=== PATIENT | male | born 1980 | race Caucasian/White ===

== ENCOUNTER 2017-04-03 23:58 | Observation (INO) | payer OTHER ==
[~2017-04-03] VITALS: Ht 182.9 cm; Wt 117.9 kg
[2017-04-04] VITALS (11 sets, daily range): BP systolic 104–120; BP diastolic 62–81
[2017-04-04 00:13] LABS: BASOPHILS # (AUTO) 0.1 10^3/uL (0.0-0.1); BASOPHILS % (AUTO) 1 % (0-10); EOSINOPHILS # (AUTO) 0.4 10^3/uL (0.0-0.3); EOSINOPHILS % (AUTO) 2 % (0-10); LYMPHOCYTES % (AUTO) 34 % (12-44); MEAN CORPUSCULAR HEMOGLOBIN 31 PG (25-34); MEAN CORPUSCULAR HGB CONC 34 G/DL (32-36); MEAN CORPUSCULAR VOLUME 91 FL (80-99); MEAN PLATELET VOLUME 9.3 FL (7.4-10.4); MONOCYTES # (AUTO) 0.8 X 10^3 (0.0-1.0); MONOCYTES % (AUTO) 6 % (0-12); NEUTROPHILS # (AUTO) 8.5 X 10^3 (1.8-7.8); NEUTROPHILS % (AUTO) 58 % (42-75); PLATELET COUNT 350 10^3/uL (130-400); RED BLOOD COUNT 5.18 10^6/uL (4.35-5.85); RED CELL DISTRIBUTION WIDTH 13.9 % (10.0-14.5); WHITE BLOOD COUNT 14.8 10^3/uL (4.3-11.0)
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
[2017-04-04 00:19] LABS: PROTHROMBIN TIME PATIENT 13.3 SEC (12.2-14.7)
[2017-04-04 00:33] LABS: ALANINE AMINOTRANSFERASE 14 U/L (0-55); ALBUMIN 4.2 GM/DL (3.2-4.5); ALCOHOL < 10 MG/DL (<10); ANION GAP 13 MMOL/L (5-14); ASPARTATE AMINO TRANSFERASE 10 U/L (5-34); BAND NEUTROPHILS 2 %; BASOPHILS % (MANUAL) 0 %; BILIRUBIN,TOTAL 0.3 MG/DL (0.1-1.0); BLOOD UREA NITROGEN 9 MG/DL (7-18); BUN/CREATININE RATIO 8; CALCIUM 9.5 MG/DL (8.5-10.1); CARBON DIOXIDE 20 MMOL/L (21-32); CHLORIDE 106 MMOL/L (98-107); CREATINE KINASE 57 U/L (30-200); CREATININE SERUM 1.12 MG/DL (0.60-1.30); EOSINOPHILS % (MANUAL) 2 %; GFR ESTIMATED > 60; GLUCOSE 117 MG/DL (70-105); LYMPHOCYTES % (MANUAL) 30 %; MAGNESIUM 2.1 MG/DL (1.8-2.4); NEUTROPHILS % (MANUAL) 46 %; POTASSIUM 4.1 MMOL/L (3.6-5.0); REACTIVE LYMPHOCYTES 14 %; SODIUM 139 MMOL/L (135-145); TOTAL PROTEIN 7.5 GM/DL (6.4-8.2)
[2017-04-04 00:35] LABS: ACETAMINOPHEN < 10 UG/ML (10-30)
[2017-04-04 00:53] LABS: TROPONIN I < 0.30 NG/ML (<0.30)
[2017-04-04 01:48] LABS: BILIRUBIN,URINE NEGATIVE (NEGATIVE); KETONES,URINE 1+ (NEGATIVE); LEUKOCYTE ESTERASE ,URINE 1+ (NEGATIVE); NITRITE,URINE NEGATIVE (NEGATIVE); PH,URINE 6.5 (5-9); PROTEIN,URINE 2+ (NEGATIVE); UROBILINOGEN,URINE 1 MG/DL (NORMAL)
[2017-04-04 01:56] LABS: SQUAMOUS EPITHELIAL CELL,UR RARE /HPF; WBC,URINE RARE /HPF
[2017-04-04] MEDS ORDERED: LACTATED RINGERS 1,000 ML IV ONE (02:08)
[2017-04-04] MEDS ORDERED: D5 1/2 NS 1000 ML IV SOLUTION 1,000 ML IV ONE (04:31)
[2017-04-04] MEDS ORDERED: ACET325T38 PO (05:19)
[2017-04-04] MEDS ORDERED: METO50TA15 PO (05:21)
[2017-04-04] MEDS ORDERED: D5 1/2 NS 1000 ML IV SOLUTION 1,000 ML IV SCH (06:15)
--- NOTE | 2017-04-04 06:47 | Diagnostic Imaging Report ---
Exam: CT head without contrast. TECHNIQUE: Axial CT images of the head were obtained without the use of intravenous contrast. DATE: 04/04/2017. COMPARISON: None. INDICATION: 36-year-old male, memory loss. Evaluation for stroke. FINDINGS: The ventricles and cerebral spinal fluid spaces are of normal size and configuration for the patient's age. There is no mass effect or midline shift. There is no acute intracranial hemorrhage. There is no abnormal extra-axial fluid collection. There is a polypoid lesion in the left maxillary sinus likely relating to a mucous retention cyst. There is mucosal thickening of the right and left sphenoid sinuses. Additional visualized portions of the paranasal sinuses, mastoid air cells, and middle ears are well aerated. IMPRESSION: 1. No identified acute intracranial abnormality. Dictated by: Dictated on workstation # [id number]
--- NOTE | 2017-04-04 06:57 | Diagnostic Imaging Report ---
INDICATION: Memory loss. Altered mental status. FINDINGS: Portable chest shows the lungs to be clear. Heart is not enlarged. There is no pulmonary edema or hilar adenopathy. No pneumothorax or pleural effusions. IMPRESSION: Normal portable chest. Dictated by: Dictated on workstation # [id number]
[2017-04-04 07:29] LABS: BASOPHILS % (AUTO) 0 % (0-10); EOSINOPHILS # (AUTO) 0.2 10^3/uL (0.0-0.3); EOSINOPHILS % (AUTO) 1 % (0-10); LYMPHOCYTES # (AUTO) 2.5 X 10^3 (1.0-4.0); LYMPHOCYTES % (AUTO) 17 % (12-44); MEAN CORPUSCULAR HEMOGLOBIN 31 PG (25-34); MEAN CORPUSCULAR HGB CONC 34 G/DL (32-36); MEAN CORPUSCULAR VOLUME 91 FL (80-99); MEAN PLATELET VOLUME 9.4 FL (7.4-10.4); MONOCYTES # (AUTO) 0.7 X 10^3 (0.0-1.0); MONOCYTES % (AUTO) 5 % (0-12); NEUTROPHILS # (AUTO) 11.4 X 10^3 (1.8-7.8); NEUTROPHILS % (AUTO) 77 % (42-75); PLATELET COUNT 265 10^3/uL (130-400); RED BLOOD COUNT 4.98 10^6/uL (4.35-5.85); WHITE BLOOD COUNT 14.8 10^3/uL (4.3-11.0)
[2017-04-04 07:42] LABS: ALANINE AMINOTRANSFERASE 13 U/L (0-55); ALBUMIN 3.8 GM/DL (3.2-4.5); ANION GAP 10 MMOL/L (5-14); ASPARTATE AMINO TRANSFERASE 10 U/L (5-34); BILIRUBIN,TOTAL 0.4 MG/DL (0.1-1.0); BLOOD UREA NITROGEN 9 MG/DL (7-18); BUN/CREATININE RATIO 10; CALCIUM 8.9 MG/DL (8.5-10.1); CARBON DIOXIDE 22 MMOL/L (21-32); CHLORIDE 108 MMOL/L (98-107); CREATININE SERUM 0.86 MG/DL (0.60-1.30); GFR ESTIMATED > 60; GLUCOSE 104 MG/DL (70-105); POTASSIUM 4.2 MMOL/L (3.6-5.0); SODIUM 140 MMOL/L (135-145); TOTAL PROTEIN 6.8 GM/DL (6.4-8.2)
[2017-04-04] MEDS ORDERED: INFLUENZA TRIvalent 2017-2018 0.5 ML/45 MCG SYR IM ONE (08:00)
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
[2017-04-04] MEDS ORDERED: BENZONATATE 100 MG (TESSALON) CAPSULE PO PRN (15:45)
[2017-04-04] MEDS ORDERED: MILK OF MAGNESIA 400 MG/5 ML 30 ML UDC PO PRN (15:45)
[2017-04-04] MEDS ORDERED: PROCHLORPERAZINE 10 MG TAB (COMPAZINE) PO SCH (15:45)
[2017-04-04] MEDS ORDERED: ENOXAPARIN 40 MG/0.4 ML (LOVENOX) SYR SC SCH (15:45)
[2017-04-04] MEDS ORDERED: ONDANSETRON 4 MG/2 ML (SDV) Z0FRAN IV PRN (15:45)
[2017-04-04] MEDS ORDERED: ACETAMINOPHEN 325 MG TABLET/CAPLET (TYLENOL) PO PRN (15:45)
[2017-04-04] MEDS ORDERED: ANTACID SUSP 30 ML UDC (MYLANTA) PO PRN (15:45)
== END 2017-04-04 20:24 | disposition left against medical advice (07) ==
LOC: ER 04-04 00:01 → UNDOADMOB 04-04 02:00 → ICU 04-04 02:00 → UNDODISOB 04-04 20:24
PROVIDERS: ADMIT Family Medicine; ATTEND Family Medicine
DX: R55 Syncope and collapse (principal); I95.9 Hypotension, unspecified; E03.9 Hypothyroidism, unspecified; I10 Essential (primary) hypertension; D72.829 Elevated white blood cell count, unspecified; F17.210 Nicotine dependence, cigarettes, uncomplicated; E66.9 Obesity, unspecified; Z68.35 Body mass index [BMI] 35.0-35.9, adult; Z79.899 Other long term (current) drug therapy; Z53.21 Procedure and treatment not carried out due to patient leaving prior to being seen by health care provider
CPT/HCPCS: 36415; 70450; 71010; 80053; 80306; 80320; 80329; 81000; 82550; 82553; 83735; 84439; 84443; 84484; 85007; 85025; 85027; 85379; 85610; 85730; 93005; 93306